=== PATIENT | female | born 1990 | race African-American/Black ===

== ENCOUNTER 2016-06-22 23:30 | Emergency (ER) | payer SELFPAY ==
[~2016-06-22] VITALS: Ht 180.3 cm; Wt 67.1 kg
[2016-06-23 00:11] LABS: BASO % 1 % (0-3); EOS % 1 % (0-3); HEMATOCRIT 40.8 % (36.0-47.0); HEMOGLOBIN 13.6 g/dL (12.0-15.5); LYMPH # 1.2 x10^3/uL (1.0-4.8); LYMPH % 27 % (24-48); MEAN CORPUSCULAR HEMOGLOBIN 30 pg (25-35); MEAN CORPUSCULAR HGB CONC 33 g/dL (31-37); MEAN CORPUSCULAR VOLUME 89 fL (79-100); MONO % 11 % (0-9); NEUT % 61 % (31-73); PLATELET COUNT 221 x10^3/uL (140-400); RED BLOOD COUNT 4.57 x10^6/uL (3.50-5.40); RED CELL DISTRIBUTION WIDTH 11.9 % (11.5-14.5); WHITE BLOOD COUNT 4.4 x10^3/uL (4.0-11.0)
[2016-06-23 00:11] LABS: NEG OBC UR NEG; POS OBC UR POS
[2016-06-23 00:14] LABS: BILIRUBIN,URINE SMALL (NEG); GLUCOSE,URINE NEGATIVE (NEG); NITRITE,URINE NEGATIVE (NEG); PH,URINE 5.5; PROTEIN,URINE NEGATIVE (NEG-TRACE); UROBILINOGEN,URINE 0.2 mg/dL (0.2 mg/dL)
[2016-06-23 00:19] LABS: BACTERIA,URINE FEW /HPF (0-FEW); RBC,URINE OCC /HPF (0-2); SQUAMOUS EPITHELIAL CELL,UR MANY /LPF; WBC,URINE OCC /HPF (0-4)
[2016-06-23 00:24] LABS: CALCIUM 8.7 mg/dL (8.5-10.1); CREATININE 0.7 mg/dL (0.6-1.0); GFR 124.4; POTASSIUM 3.5 mmol/L (3.5-5.1)
[2016-06-23 00:27] LABS: ALBUMIN 3.9 g/dL (3.4-5.0); TOTAL BILIRUBIN 0.5 mg/dL (0.2-1.0); TOTAL PROTEIN 7.9 g/dL (6.4-8.2)
[2016-06-23] MEDS ORDERED: ONDA4TAB10 SL (00:49)
[2016-06-23] MEDS ORDERED: HYDR-2666 PO (00:49)
--- NOTE | 2016-06-23 00:49 | PHYS DOC ---
Past Medical History Past Medical History: No Pertinent History Past Surgical History: No Surgical History Alcohol Use: None Drug Use: None Adult General Chief Complaint Chief Complaint: ABDOMINAL PAIN HPI HPI 25-year-old female presenting to the emergency department with abdominal pain describes as cramping sensation. She is also had diarrhea that is watery nonbloody and intermittent. She reports 6 episodes today. She has occasional nausea without vomiting. She tried to take Pepto-Bismol with no relief. She denies chest pain shortness of breath fevers or chills. Review of systems is negative for vomiting, chest pain. Positive for diarrhea abdominal pain.All other review of systems is negative unless otherwise noted in history of present illness. Review of Systems Review of Systems See above. Allergies Allergies Allergies Coded Allergies Type Severity Reaction Last Updated Verified No Known Drug Allergies 06/22/16 No Physical Exam Physical Exam Constitutional: Well developed, well nourished, no acute distress, non-toxic appearance. HENT: Normocephalic, atraumatic, bilateral external ears normal, oropharynx moist, no oral exudates, nose normal. [] Eyes: PERRLA, EOMI, conjunctiva normal, no discharge. Neck: Normal range of motion, no tenderness, supple, no stridor. [] Cardiovascular:Heart rate regular rhythm, no murmur Lungs & Thorax: Bilateral breath sounds clear to auscultation [] Abdomen: Soft nontender abdomen without rebound tenderness or guarding present. Negative McBurneys point. Negative Ferrara sign. No ecchymosis present. Skin: Warm, dry, no erythema, no rash. Back: No tenderness, no CVA tenderness. [] Extremities: No tenderness, no cyanosis, no clubbing, ROM intact, no edema. [] Neurologic: Alert and oriented X 3, normal motor function, normal sensory function, no focal deficits noted. Psychologic: Affect normal, judgement normal, mood normal. Current Patient Data Vital Signs Vital Signs Date Time Temp Pulse Resp B/P Pulse Ox O2 Delivery O2 Flow Rate FiO2 06/23/16 00:59 69 16 107/55 99 06/22/16 23:59 99.1 Room Air 99.1 Lab Values Laboratory Tests Test 06/22/16 23:45 06/22/16 23:50 Urine Collection Type Unknown Urine Color Yellow Urine Clarity Clear Urine pH 5.5 Urine Specific [place] >=1.030 Urine Protein Negativemg/dL (NEG-TRACE) Urine Glucose (UA) Negativemg/dL (NEG) Urine Ketones (Stick) 40mg/dL (NEG) Urine Blood Negative (NEG) Urine Nitrite Negative (NEG) Urine Bilirubin Small (NEG) Urine Urobilinogen Dipstick 0.2mg/dL (0.2 mg/dL) Urine Leukocyte Esterase Negative (NEG) Urine RBC Occ/HPF (0-2) Urine WBC Occ/HPF (0-4) Urine Squamous Epithelial Cells Many/LPF Urine Bacteria Few/HPF (0-FEW) Urine Mucus Marked/LPF Urine Test Negative (NEG) White Blood Count 4.4x10^3/uL (4.0-11.0) Red Blood Count 4.57x10^6/uL (3.50-5.40) Hemoglobin 13.6g/dL (12.0-15.5) Hematocrit 40.8% (36.0-47.0) Mean Corpuscular Volume 89fL (79-100) Mean Corpuscular Hemoglobin 30pg (25-35) Mean Corpuscular Hemoglobin Concent 33g/dL (31-37) Red Cell Distribution Width 11.9% (11.5-14.5) Platelet Count 221x10^3/uL (140-400) Neutrophils (%) (Auto) 61% (31-73) Lymphocytes (%) (Auto) 27% (24-48) Monocytes (%) (Auto) 11% (0-9) H Eosinophils (%) (Auto) 1% (0-3) Basophils (%) (Auto) 1% (0-3) Neutrophils # (Auto) 2.7x10^3uL (1.8-7.7) Lymphocytes # (Auto) 1.2x10^3/uL (1.0-4.8) Monocytes # (Auto) 0.5x10^3/uL (0.0-1.1) Eosinophils # (Auto) 0.0x10^3/uL (0.0-0.7) Basophils # (Auto) 0.0x10^3/uL (0.0-0.2) Sodium Level 138mmol/L (136-145) Potassium Level 3.5mmol/L (3.5-5.1) Chloride Level 105mmol/L (98-107) Carbon Dioxide Level 23mmol/L (21-32) Anion Gap 10 (6-14) Blood Urea Nitrogen 10mg/dL (7-20) Creatinine 0.7mg/dL (0.6-1.0) Estimated GFR (Cockcroft-Gault) 124.4 BUN/Creatinine Ratio 14 (6-20) Glucose Level 86mg/dL (70-99) Calcium Level 8.7mg/dL (8.5-10.1) Total Bilirubin 0.5mg/dL (0.2-1.0) Aspartate Amino Transferase (AST) 19U/L (15-37) Alanine Aminotransferase (ALT) 29U/L (14-59) Alkaline Phosphatase 71U/L (46-116) Total Protein 7.9g/dL (6.4-8.2) Albumin 3.9g/dL (3.4-5.0) Albumin/Globulin Ratio 1.0 (1.0-1.7) Lipase 105U/L (73-393) Laboratory Tests 06/22/16 23:50 Laboratory Tests 06/22/16 23:50 EKG EKG [] Radiology/Procedures Radiology/Procedures [] Course & Med Decision Making Course & Med Decision Making Pertinent Labs and Imaging studies reviewed. (See chart for details) [] 25-year-old female with abdominal pain and diarrhea presenting to the emergency department today. Vital signs showed normal heart rate. Afebrile. Otherwise unremarkable. Physical exam showed a nontender abdomen. Blood work obtained which was unremarkable. Urinalysis negative for . Not suggestive of infection. Mildly dehydrated. The patient was subsequent discharged home to follow up with PCP over the next 2-3 days. She is provided nausea and pain medication in the interim for symptomatic relief. Dragon Disclaimer Dragon Disclaimer This electronic medical record was generated, in whole or in part, using a voice recognition dictation system. Departure Departure Impression: Primary Impression: Abdominal pain Disposition: 01 HOME, SELF-CARE Condition: STABLE Referrals: NO PCP (PCP) STANLEY HOOVER MD Patient Instructions: Abdominal Pain, Women Additional Instructions: Thank you for allowing us to participate in your care today. Followup with your primary care physician in 3 days if your symptoms do not improve. If you do not have a primary care provider you can ask for a list of our primary care providers. Return to the emergency department you have any new or concerning findings. This should be evaluated by the primary care physician and any necessary consulting services for continued management within a few days after discharge. Return to emergency room if you have any new or concerning symptoms including but not limited to fever, chills, nausea, vomiting, intractable pain, any new rashes, chest pain, shortness of air, uncontrolled bleeding, difficulty breathing, and/or vision loss. You may have been prescribed medication that can change in your level of thinking and ability to operate machinery. These medications include hydrocodone and Ativan. Also, Benadryl has been known to do this as well. Be sure to check with your pharmacist and ask if the medications you've prescribed can affect your level of consciousness. I recommend not operating heavy machinery or driving while on medication such as these. Scripts Hydrocodone Bit/Acetaminophen (Hydrocodone-Apap 5-325 )1 Each Tablet1 Tab PO PRN Q6HRS PRN PAIN #8 TAB Be careful as this medication may cause you to be drowsy or tired. Do not drive on this medication. Prov:PHYLICIA MOSELEY MD 06/23/16 Ondansetron (Zofran Odt)4 Mg Tab.rapdis1 Tab SL PRN Q8HRS PRN NAUSEA #6 TAB Prov:PHYLICIA MOSELEY MD 06/23/16 PHYLICIA MOSELEY MD Jun 23, 2016 00:49
[2016-06-23 00:59] VITALS: BP 107/55
== END 2016-06-23 01:01 | disposition home or self-care (01) ==
LOC: ER 23:30
DX: R10.9 Unspecified abdominal pain (principal); R19.7 Diarrhea, unspecified; R11.0 Nausea
CPT/HCPCS: 36415; 80053; 81001; 81025; 83690; 85027; 99284

== ENCOUNTER 2017-01-09 18:50 | Emergency (ER) | payer SELFPAY ==
[~2017-01-09] VITALS: Ht 154.9 cm; Wt 68.9 kg
[~2017-01-09 18:50] MED LIST: HYDR-2758 PO; ONDA4TAB10 SL
[2017-01-09 19:25] VITALS: BP 112/59
--- NOTE | 2017-01-09 19:59 | PHYS DOC ---
Past Medical History Past Medical History: Asthma, Bronchitis Past Surgical History: No Surgical History Alcohol Use: None Drug Use: None Adult General Chief Complaint Chief Complaint: PAIN ON URINATION [facility] HPI Patient is a 26 year old female who presents with dysuria and hematuria since yesterday. Patient denies any concerns for STDs. Denies any fever nausea vomiting. She states she is trying to get . Review of Systems Review of Systems Constitutional: Denies fever or chills [] Eyes: Denies change in visual acuity, redness, or eye pain [] HENT: Denies nasal congestion or sore throat [] Respiratory: Denies cough or shortness of breath [] Cardiovascular: No additional information not addressed in HPI [] GI: Denies abdominal pain, nausea, vomiting, bloody stools or diarrhea [] : Dysuria for 1 day Musculoskeletal: Denies back pain or joint pain [] Integument: Denies rash or skin lesions [] Neurologic: Denies headache, focal weakness or sensory changes [] Endocrine: Denies polyuria or polydipsia [] Allergies Allergies Allergies Coded Allergies Type Severity Reaction Last Updated Verified No Known Drug Allergies 06/22/16 No Physical Exam Physical Exam Constitutional: Well developed, well nourished, no acute distress, non-toxic appearance. [] HENT: Normocephalic, atraumatic, bilateral external ears normal, oropharynx moist, no oral exudates, nose normal. [] Eyes: PERRLA, EOMI, conjunctiva normal, no discharge. [] Neck: Normal range of motion, no tenderness, supple, no stridor. [] Cardiovascular:Heart rate regular rhythm, no murmur [] Lungs & Thorax: Bilateral breath sounds clear to auscultation [] Abdomen: Bowel sounds normal, soft, no tenderness, no masses, no pulsatile masses. [] Skin: Warm, dry, no erythema, no rash. [] Back: No tenderness, no CVA tenderness. [] Extremities: No tenderness, no cyanosis, no clubbing, ROM intact, no edema. [] Neurologic: Alert and oriented X 3, normal motor function, normal sensory function, no focal deficits noted. [] Psychologic: Affect normal, judgement normal, mood normal. [] Current Patient Data Vital Signs Vital Signs Date Time Temp Pulse Resp B/P (MAP) Pulse Ox O2 Delivery O2 Flow Rate FiO2 01/09/17 19:25 98.1 71 20 98 Room Air 98.1 Lab Values Laboratory Tests Test 01/09/17 19:02 01/09/17 19:50 POC Urine HCG, Qualitative Hcg negative (Negative) Urine Collection Type Unknown Urine Color Yellow Urine Clarity Cloudy Urine pH 5.5 Urine Specific [place] >=1.030 Urine Protein Negative mg/dL (NEG-TRACE) Urine Glucose (UA) Negative mg/dL (NEG) Urine Ketones (Stick) Negative mg/dL (NEG) Urine Blood Moderate (NEG) Urine Nitrite Positive (NEG) Urine Bilirubin Negative (NEG) Urine Urobilinogen Dipstick 0.2 mg/dL (0.2 mg/dL) Urine Leukocyte Esterase Small (NEG) Urine RBC 0 /HPF (0-2) Urine WBC 20-40 /HPF (0-4) Urine Squamous Epithelial Cells Many /LPF Urine Bacteria Many /HPF (0-FEW) EKG EKG [] Radiology/Procedures Radiology/Procedures [] Course & Med Decision Making Course & Med Decision Making Pertinent Labs and Imaging studies reviewed. (See chart for details) Patient is in the ED with dysuria and hematuria for one day, patient also states she is trying to get . Negative urine hCG, urine positive for UTI discharged with cephalexin and Pyridium. Tylenol /Motrin for pain. Follow- up with PCP in 1-2 weeks. Dragon Disclaimer Dragon Disclaimer This electronic medical record was generated, in whole or in part, using a voice recognition dictation system. Departure Departure Impression: Primary Impression: Urinary tract infection Disposition: 01 HOME, SELF-CARE Condition: STABLE Referrals: NO PCP (PCP) Follow-up with your doctor in 1-2 weeks Patient Instructions: Urinary Tract Infection Additional Instructions: You were seen for urinary tract infection. Complete your antibiotics. Take Tylenol/ Motrin for pain or the prescribed Pyridium. Follow-up with your doctor in 1-2 weeks. Push fluids. Come back to the ED if symptoms worsen Scripts Cephalexin (CEPHALEXIN) 500 Mg Tablet 1 TAB PO BID, #14 TAB Prov: MUTUNGA,PADDY COMMUNICATIONS EDITOR 01/09/17 Phenazopyridine Hcl (PYRIDIUM) 100 Mg Tablet 100 MG PO TID, #9 TAB Prov: MUTUNGAPADDY COMMUNICATIONS EDITOR 01/09/17 Problem Qualifiers Primary Impression: Urinary tract infection Urinary tract infection type: acute cystitis Hematuria presence: with hematuria Qualified Codes: N30.01 - Acute cystitis with hematuria PADDY CAMPUZANO APRN Jan 09, 2017 19:59
[2017-01-09 20:01] LABS: BILIRUBIN,URINE NEGATIVE (NEG); GLUCOSE,URINE NEGATIVE (NEG); NITRITE,URINE POSITIVE (NEG); PH,URINE 5.5; PROTEIN,URINE NEGATIVE (NEG-TRACE); UROBILINOGEN,URINE 0.2 mg/dL (0.2 mg/dL)
[2017-01-09 20:23] LABS: BACTERIA,URINE MANY /HPF (0-FEW); RBC,URINE 0 /HPF (0-2); WBC,URINE 20-40 /HPF (0-4)
[2017-01-09 20:24] LABS: SQUAMOUS EPITHELIAL CELL,UR MANY /LPF
[2017-01-09] MEDS ORDERED: CEPH500T PO (20:40)
[2017-01-09] MEDS ORDERED: PHEN100T82 PO (20:40)
== END 2017-01-09 21:05 | disposition home or self-care (01) ==
LOC: ER 18:50
DX: N30.01 Acute cystitis with hematuria (principal); J45.909 Unspecified asthma, uncomplicated
CPT/HCPCS: 81001; 81025; 99283

== ENCOUNTER 2017-01-18 11:41 | Emergency (ER) | payer OTHER ==
[~2017-01-18] VITALS: Ht 154.9 cm; Wt 68.0 kg
[~2017-01-18 11:41] MED LIST changes: +CEPH500T PO; +PHEN100T82 PO
[2017-01-18 13:16] VITALS: BP 113/62
[2017-01-18 13:56] LABS: BILIRUBIN,URINE NEGATIVE (NEG); GLUCOSE,URINE NEGATIVE (NEG); NITRITE,URINE NEGATIVE (NEG); PH,URINE 5.5; PROTEIN,URINE NEGATIVE (NEG-TRACE); UROBILINOGEN,URINE 0.2 mg/dL (0.2 mg/dL)
[2017-01-18 14:02] LABS: BACTERIA,URINE MOD /HPF (0-FEW); RBC,URINE 0 /HPF (0-2); SQUAMOUS EPITHELIAL CELL,UR MOD /LPF; WBC,URINE OCC /HPF (0-4)
[2017-01-18] MEDS ORDERED: NYST15CR2 TP (14:27)
--- NOTE | 2017-01-18 14:28 | PHYS DOC ---
Past Medical History Past Medical History: Asthma, Bronchitis Past Surgical History: No Surgical History Alcohol Use: None Drug Use: None Adult General Chief Complaint Chief Complaint: VAGINAL PROBLEM HPI HPI Patient is a 26 year old female who presents with vaginal rash, irritation, redness and discharged 3 days ago after completing cephalexin for UTI. Patient denies any concerns for STDs. Review of Systems Review of Systems Constitutional: Denies fever or chills [] Eyes: Denies change in visual acuity, redness, or eye pain [] HENT: Denies nasal congestion or sore throat [] Respiratory: Denies cough or shortness of breath [] Cardiovascular: No additional information not addressed in HPI [] GI: vaginal rash, irritation, redness and discharged : Denies dysuria or hematuria [] Musculoskeletal: Denies back pain or joint pain [] Integument: Denies rash or skin lesions [] Neurologic: Denies headache, focal weakness or sensory changes [] Endocrine: Denies polyuria or polydipsia [] Current Medications Current Medications Current Medications Medications (Trade) Dose Ordered Sig/Ash Start Time Stop Time Status Last Admin Dose Admin Fluconazole (Diflucan) 150 mg 1X ONCE 01/18/17 14:30 01/18/17 14:31 UNV Allergies Allergies Allergies Coded Allergies Type Severity Reaction Last Updated Verified No Known Drug Allergies 06/22/16 No Physical Exam Physical Exam Constitutional: Well developed, well nourished, no acute distress, non-toxic appearance. [] HENT: Normocephalic, atraumatic, bilateral external ears normal, oropharynx moist, no oral exudates, nose normal. [] Eyes: PERRLA, EOMI, conjunctiva normal, no discharge. [] Neck: Normal range of motion, no tenderness, supple, no stridor. [] Cardiovascular:Heart rate regular rhythm, no murmur [] Lungs & Thorax: Bilateral breath sounds clear to auscultation [] Abdomen: Bowel sounds normal, soft, no tenderness, no masses, no pulsatile masses. [] Pelvic exam External pelvic appears irritated. No obvious rashes noted. Diffuse Swelling noted on the external labia. cervix=closed no CMT discharge=trace amount of white thick discharge adnexa=no tenderness Skin: Warm, dry, no erythema, no rash. [] Back: No tenderness, no CVA tenderness. [] Extremities: No tenderness, no cyanosis, no clubbing, ROM intact, no edema. [] Neurologic: Alert and oriented X 3, normal motor function, normal sensory function, no focal deficits noted. [] Psychologic: Affect normal, judgement normal, mood normal. [] Current Patient Data Vital Signs Vital Signs Date Time Temp Pulse Resp B/P (MAP) Pulse Ox O2 Delivery O2 Flow Rate FiO2 01/18/17 13:16 98.7 72 16 99 Room Air 98.7 Lab Values Laboratory Tests Test 01/18/17 13:03 01/18/17 13:30 POC Urine HCG, Qualitative Hcg negative (Negative) Urine Collection Type Unknown Urine Color Yellow Urine Clarity Cloudy Urine pH 5.5 Urine Specific [place] 1.010 Urine Protein Negative mg/dL (NEG-TRACE) Urine Glucose (UA) Negative mg/dL (NEG) Urine Ketones (Stick) Negative mg/dL (NEG) Urine Blood Negative (NEG) Urine Nitrite Negative (NEG) Urine Bilirubin Negative (NEG) Urine Urobilinogen Dipstick 0.2 mg/dL (0.2 mg/dL) Urine Leukocyte Esterase Trace (NEG) Urine RBC 0 /HPF (0-2) Urine WBC Occ /HPF (0-4) Urine Squamous Epithelial Cells Mod /LPF Urine Bacteria Mod /HPF (0-FEW) Urine Mucus Marked /LPF Microbiology 01/18/17 Wet Prep - Final, Complete EKG EKG [] Radiology/Procedures Radiology/Procedures [] Course & Med Decision Making Course & Med Decision Making Pertinent Labs and Imaging studies reviewed. (See chart for details) Patient is in the ED with vaginal discharge with swelling and irritation that began 3 days ago after completing cephalexin. On exam vaginal discharge that is suspicious for yeast infection. Urine analysis with no acute findings, wet prep was negative for any acute findings. I went ahead and gave this patient fluconazole in the ED. I also discharged her with nystatin/triamcinolone cream. Informed her she can take Benadryl as well. Follow-up with her EXECUTIVE ADMINISTRATOR in one week if symptoms continue. Dragon Disclaimer Dragon Disclaimer This electronic medical record was generated, in whole or in part, using a voice recognition dictation system. Departure Departure Impression: Primary Impression: Vaginal irritation Disposition: 01 HOME, SELF-CARE Condition: STABLE Referrals: NO PCP (PCP) DARA PAPPAS MD follow up in one week Patient Instructions: Candidal Vulvovaginitis, [id number] Additional Instructions: You were seen with vaginal irritation highly suspicious of a yeast infection. You were fluconazole one time treatment in the ED for yeast infection. We highly recommend you follow-up with your own doctor or the provided EXECUTIVE ADMINISTRATOR in 1- 2 weeks. Use the provided cream as ordered. Scripts Nystatin/Triamcin (NYSTATIN-TRIAMCINOLONE CREAM) 15 Gm Cream..g. 1 CANDIE TP BID, #15 GM 1 Refill Prov: PADDY CAMPUZANO APRN 01/18/17 PADDY CAMPUZANO APRN Jan 18, 2017 14:28
[2017-01-18] MEDS ORDERED: FLUCONAZOLE 100 MG TABLET. PO ONE (14:30)
== END 2017-01-18 14:37 | disposition home or self-care (01) ==
LOC: ER 11:41
DX: N89.8 Other specified noninflammatory disorders of vagina (principal); J45.909 Unspecified asthma, uncomplicated
CPT/HCPCS: 81001; 81025; 87491; 87591; 99284; Q0111

== ENCOUNTER 2017-03-04 09:55 | Emergency (ER) | payer OTHER ==
[~2017-03-04] VITALS: Ht 154.9 cm; Wt 68.0 kg
[~2017-03-04 09:55] MED LIST changes: +NYST15CR2 TP
--- NOTE | 2017-03-04 10:42 | PHYS DOC ---
Past Medical History Past Medical History: Asthma, Bronchitis Past Surgical History: No Surgical History Alcohol Use: None Drug Use: None Adult General Chief Complaint Chief Complaint: ABDOMINAL PAIN [facility] HPI Patient is a 26 year old female presents to the emergency department with a 1 week history of lower abdominal pain. Patient states the pain is a cramping type pain. She states her LNMP was January 22. She denies urinary frequency, urgency or pain with urination. Denies vomiting does state she has been nauseated, Denies diarrhea, states she had a normal BM today. She has taken a test at home with a negative result. Patient is requesting blood to be drawn for test. Patient denies vaginal discharge. Patient states her cramping is a 8/10 however has not taken any medications for the pain. Review of Systems Review of Systems Constitutional: Denies fever or chills [] Eyes: Denies change in visual acuity, redness, or eye pain [] HENT: Denies nasal congestion or sore throat [] Respiratory: Denies cough or shortness of breath [] Cardiovascular: No additional information not addressed in HPI [] GI: lower abdominal cramping, nausea, denies vomiting, bloody stools or diarrhea [] : Denies dysuria or hematuria [] Musculoskeletal: Denies back pain or joint pain [] Integument: Denies rash or skin lesions [] Neurologic: Denies headache, focal weakness or sensory changes [] Endocrine: Denies polyuria or polydipsia [] Current Medications Current Medications Current Medications Medications (Trade) Dose Ordered Sig/[facility] Start Time Stop Time Status Last Admin Dose Admin Acetaminophen (Tylenol) 650 mg 1X ONCE 03/04/17 10:45 03/04/17 10:46 DC 03/04/17 10:42 650 MG Allergies Allergies Allergies Coded Allergies Type Severity Reaction Last Updated Verified No Known Drug Allergies 06/22/16 No Physical Exam Physical Exam Constitutional: Well developed, well nourished, no acute distress, non-toxic appearance. [] HENT: Normocephalic, atraumatic, bilateral external ears normal, oropharynx moist, no oral exudates, nose normal. [] Eyes: PERRLA, EOMI, conjunctiva normal, no discharge. [] Neck: Normal range of motion, no tenderness, supple, no stridor. [] Cardiovascular:Heart rate regular rhythm, no murmur [] Lungs & Thorax: Bilateral breath sounds clear to auscultation [] Abdomen: Bowel sounds hypoactive, soft, suprapubic tenderness, no masses, no pulsatile masses. No rebound tenderness, no guarding noted. Skin: Warm, dry, no erythema, no rash. [] Back: No tenderness, no CVA tenderness. [] Extremities: No tenderness, no cyanosis, no clubbing, ROM intact, no edema. [] Neurologic: Alert and oriented X 3, normal motor function, normal sensory function, no focal deficits noted. [] Psychologic: Affect normal, judgement normal, mood normal. [] Current Patient Data Vital Signs Vital Signs Date Time Temp Pulse Resp B/P (MAP) Pulse Ox O2 Delivery O2 Flow Rate FiO2 03/04/17 11:06 80 20 111/65 (80) 98 Room Air 03/04/17 10:12 98.7 98.7 Lab Values Laboratory Tests Test 03/04/17 10:07 03/04/17 10:35 03/04/17 11:00 POC Urine HCG, Qualitative Hcg negative (Negative) Urine Collection Type Unknown Urine Color Yellow Urine Clarity Clear Urine pH 5.5 Urine Specific [place] 1.025 Urine Protein Negative mg/dL (NEG-TRACE) Urine Glucose (UA) Negative mg/dL (NEG) Urine Ketones (Stick) Negative mg/dL (NEG) Urine Blood Large (NEG) Urine Nitrite Negative (NEG) Urine Bilirubin Negative (NEG) Urine Urobilinogen Dipstick 0.2 mg/dL (0.2 mg/dL) Urine Leukocyte Esterase Negative (NEG) Urine RBC Occ /HPF (0-2) Urine WBC Occ /HPF (0-4) Urine Squamous Epithelial Cells Mod /LPF Urine Bacteria 0 /HPF (0-FEW) Urine Mucus Mod /LPF Maternal Serum HCG Beta Subunit < 1 mIU/mL (0-5) EKG EKG [] Radiology/Procedures Radiology/Procedures [] Course & Med Decision Making Course & Med Decision Making Pertinent Labs and Imaging studies reviewed. (See chart for details) Patient's urine was negative for urinary tract infection, negative for , beta Quant was completed which was less than 1. Patient was provided with Tylenol for abdominal cramping and discomfort. A shunt urine was positive for large amount of blood however patient states that her abdominal pain and discomfort is completely gone. Patient will be discharged home with recommendations for Tylenol or ibuprofen for pain and discomfort. She was also recommended to follow-up with the primary care physician if she continues to have abdominal pain and discomfort. Patient agrees with discharge instructions, treatment regimens and follow-up recommendations. All questions and concerns have been answered at patient's bedside. Patient denies any vaginal discharge or any concerns for sexually transmitted infections, patient did not feel vaginal exam was necessary. [] Dragon Disclaimer Dragon Disclaimer This electronic medical record was generated, in whole or in part, using a voice recognition dictation system. Departure Departure Impression: Primary Impression: Bilateral lower abdominal cramping Disposition: HOME, SELF-CARE Condition: STABLE Referrals: NO PCP (PCP) Patient Instructions: Abdominal Pain (Nonspecific) Additional Instructions: Your test were negative here in the emergency department. Your urine was negative for urinary tract infection. However did have large amount of blood. Tylenol or ibuprofen for your abdominal cramping and discomfort. Follow-up with a primary care physician in the next week. Return back to emergency prior signs symptoms of become worse. JOSIE RICHARDS ASPHALT RAKER Mar 04, 2017 10:42
[2017-03-04] MEDS ORDERED: ACETAMINOPHEN 325 MG TABLET. PO ONE (10:45)
[2017-03-04 10:51] LABS: BILIRUBIN,URINE NEGATIVE (NEG); GLUCOSE,URINE NEGATIVE (NEG); NITRITE,URINE NEGATIVE (NEG); PH,URINE 5.5; PROTEIN,URINE NEGATIVE (NEG-TRACE); UROBILINOGEN,URINE 0.2 mg/dL (0.2 mg/dL)
[2017-03-04 11:06] VITALS: BP 111/65
[2017-03-04 11:27] LABS: BACTERIA,URINE 0 /HPF (0-FEW); RBC,URINE OCC /HPF (0-2); SQUAMOUS EPITHELIAL CELL,UR MOD /LPF; WBC,URINE OCC /HPF (0-4)
== END 2017-03-04 12:26 | disposition home or self-care (01) ==
LOC: ER 09:55
DX: R10.32 Left lower quadrant pain (principal); R10.31 Right lower quadrant pain; R11.0 Nausea; J45.909 Unspecified asthma, uncomplicated
CPT/HCPCS: 36415; 81001; 81025; 84702; 99284

== ENCOUNTER 2017-06-04 09:29 | Emergency (ER) | payer SELFPAY, OTHER ==
[2017-06-04 10:01] LABS: URINE HCG POC HCG NEGATIVE (Negative)
[2017-06-04 10:30] LABS: BILIRUBIN,URINE NEGATIVE (NEG); CLARITY,URINE CLEAR; COLOR,URINE YELLOW; GLUCOSE,URINE NEGATIVE (NEG); NITRITE,URINE NEGATIVE (NEG); PH,URINE 5.5; PROTEIN,URINE NEGATIVE (NEG-TRACE); UROBILINOGEN,URINE 0.2 mg/dL (0.2 mg/dL)
[2017-06-04 10:46] LABS: BACTERIA,URINE FEW /HPF (0-FEW); RBC,URINE RARE /HPF (0-2); SQUAMOUS EPITHELIAL CELL,UR MANY /LPF; WBC,URINE RARE /HPF (0-4)
== END 2017-06-04 12:18 | disposition home or self-care (01) ==
LOC: ER 09:29
DX: Z71.1 Person with feared health complaint in whom no diagnosis is made (principal); J45.909 Unspecified asthma, uncomplicated
CPT/HCPCS: 76830; 76856; 81001; 81025; 99285-25

== ENCOUNTER 2018-12-29 | Emergency (ER) | payer SELFPAY ==
[~2018-12-29] VITALS: Ht 152.4 cm; Wt 68.0 kg
[2018-12-29] VITALS: BP 132/95
[~2018-12-29] MED LIST changes: -HYDR-2758 PO; +HYDR-2761 PO
[2018-12-29] MEDS ORDERED: LORA0.5T96 PO (00:14)
--- NOTE | 2018-12-29 00:14 | PHYS DOC ---
Past Medical History Past Medical History: Asthma, Bronchitis Past Surgical History: No Surgical History Alcohol Use: None Drug Use: None Adult General Chief Complaint Chief Complaint: ANXIETY/PANIC ATTACK HPI HPI Ms. Maguire is a 28yo AAF w/ PMH significant for anxiety and panic attacks presents with shortness of breath and palpitations that began tonight as she was laying in bed. She reports DAVIS. Denies CP. States she has experienced similar symptoms multiple times before but is typically able to get her anxiety under control but feared she might be suffering from a heart attack, prompting her to call EMS. Review of Systems Review of Systems Constitutional: Denies fever or chills Eyes: Denies redness or eye pain HENT: Denies nasal congestion or sore throat Respiratory: Reports shortness of breath. Denies cough. Cardiovascular: Reports palpitations. Denies chest pain. GI: Denies abdominal pain, nausea, or vomiting : Denies dysuria or hematuria Musculoskeletal: Denies back pain or joint pain Integument: Denies rash or skin lesions Neurologic: Reports DAVIS. Denies focal weakness or sensory changes Complete systems were reviewed and found to be within normal limits, except as documented in this note. Allergies Allergies Allergies Coded Allergies Type Severity Reaction Last Updated Verified No Known Drug Allergies 06/22/16 No Physical Exam Physical Exam Constitutional: Well developed, well nourished, no acute distress, non-toxic appearance HENT: Normocephalic, atraumatic, oropharynx moist Eyes: PERRL, EOMI, conjunctiva normal, no discharge Neck: Normal range of motion, no tenderness, supple, no cervical or supraclavicular LAD Cardiovascular: Heart rate normal, regular rhythm Lungs & Thorax: Bilateral breath sounds clear to auscultation, no wheezing Abdomen: Soft, no tenderness Skin: Warm, dry, no erythema, no rash Extremities: No tenderness, ROM intact, no edema Neurologic: Alert and oriented X 3, normal motor function, normal sensory function, no focal deficits noted Psychologic: Affect normal, judgement normal, mood normal Current Patient Data Vital Signs Vital Signs Date Time Temp Pulse Resp B/P (MAP) Pulse Ox O2 Delivery O2 Flow Rate FiO2 12/29/18 00:00 98.2 70 16 132/95 (107) 98 Room Air 98.2 EKG EKG EKG obtained @ 00:15 and read @ 00:18. NSR w/o ST-elevation changes. 73 BPM.[] Radiology/Procedures Radiology/Procedures [] Course & Med Decision Making Course & Med Decision Making Patient presented w/ shortness of breath and palpitations secondary to anxiety/panic attack. EKG NSR. Patient stable for discharge with outpatient follow-up with PCP. Discussed findings and plan with patient and family, who acknowledge understanding and agreement. [] Dragon Disclaimer Dragon Disclaimer This electronic medical record was generated, in whole or in part, using a voice recognition dictation system. Departure Departure Impression: Primary Impression: Anxiety Disposition: 01 HOME, SELF-CARE Condition: IMPROVED Referrals: NO PCP (PCP) Patient Instructions: Anxiety and Panic Attacks, [id number] Scripts Lorazepam (ATIVAN) 0.5 Mg Tablet 0.5 MG PO TID PRN for ANXIETY / AGITATION, #6 TAB Prov: STANLEY MCDERMOTT DO 12/29/18 STANLEY MCDERMOTT DO Dec 29, 2018 00:14
--- NOTE | 2018-12-29 06:35 | EKG ---
[facility] [address] [place] [address] Test Date: 2018-12-29 Test Time: 00:15:13 Pat Name: GUERLINE LAINEZ Department: Room: Gender: F [employer]: : 1990 Requested By: STANLEY MCDERMOTT Order Number: [id number] Reading MD: Measurements Intervals [place] Rate: 73 P: 46 CT: 132 QRS: 26 QRSD: 88 T: 28 QT: 368 QTc: 409 Interpretive Statements SINUS RHYTHM OTHERWISE NORMAL ECG RI6.01 Unconfirmed report No previous ECG available for comparison
== END 2018-12-29 00:23 | disposition home or self-care (01) ==
LOC: ER
DX: F41.9 Anxiety disorder, unspecified (principal); R00.2 Palpitations; R06.02 Shortness of breath; R51 Headache; J45.909 Unspecified asthma, uncomplicated
CPT/HCPCS: 93005; 99284

== ENCOUNTER 2021-02-09 18:11 | Emergency (ER) | payer OTHER ==
[~2021-02-09] VITALS: Ht 152.4 cm; Wt 79.5 kg
[~2021-02-09 18:11] MED LIST changes: +LORA0.5T96 PO
[2021-02-09 20:19] VITALS: BP 121/60
[2021-02-09 20:34] LABS: BILIRUBIN,URINE NEGATIVE (NEG); CLARITY,URINE CLEAR; COLOR,URINE YELLOW; NITRITE,URINE NEGATIVE (NEG); PH,URINE 6.5 (<5.0-8.0); PROTEIN,URINE NEGATIVE (NEG-TRACE); UROBILINOGEN,URINE 0.2 mg/dL (0.2 mg/dL)
[2021-02-09 20:43] LABS: BACTERIA,URINE MODERATE /HPF (0-FEW)
--- NOTE | 2021-02-09 20:55 | PHYS DOC ---
Past Medical History Past Medical History: Asthma, Bronchitis Past Surgical History: No Surgical History Smoking Status: Never Smoker Alcohol Use: None Drug Use: None Social History Narrative: CBD General Adult EDM: Chief Complaint: DYSPNEA/RESPIRATORY DISTRESS HPI: HPI: Patient is a 30 year old female with history of bronchitis, asthma, who presents the ED today complaining of pain to her chest on inspiration, symptoms for 2 days. Denies any fever coughing or congestion. Patient is in the ED with a young son who is actively coughing. Review of Systems: Review of Systems: Constitutional: Denies fever or chills. [] Eyes: Denies change in visual acuity. [] HENT: Denies nasal congestion or sore throat. [] Respiratory: Reports pain to the chest on inspiration. Denies cough or shortness of breath. [] Cardiovascular: Denies chest pain or edema. [] GI: Denies abdominal pain, nausea, vomiting, bloody stools or diarrhea. [] : Denies dysuria. [] Musculoskeletal: Denies back pain or joint pain. [] Integument: Denies rash. [] Neurologic: Denies headache, focal weakness or sensory changes. [] Endocrine: Denies polyuria or polydipsia. [] Lymphatic: Denies swollen glands. [] Psychiatric: Denies depression or anxiety. [] Heart Score: C/O Chest Pain: N/A Risk Factors: Risk Factors: DM, Current or recent (<one month) smoker, HTN, HLP, family history of CAD, obesity. Risk Scores: Score 0 - 3: 2.5% MACE over next 6 weeks - Discharge Home Score 4 - 6: 20.3% MACE over next 6 weeks - Admit for Clinical Observation Score 7 - 10: 72.7% MACE over next 6 weeks - Early Invasive Strategies Allergies: Allergies: Allergies Coded Allergies Type Severity Reaction Last Updated Verified No Known Drug Allergies 06/22/16 No Physical Exam: PE: Constitutional: Well developed, well nourished, no acute distress, non-toxic appearance. [] HENT: Normocephalic, atraumatic, bilateral external ears normal, oropharynx moist, no oral exudates, nose normal. [] Eyes: PERRLA, EOMI, conjunctiva normal, no discharge. [] Neck: Normal range of motion, no tenderness, supple, no stridor. [] Cardiovascular:Heart rate regular rhythm, no murmur [] Lungs & Thorax: Bilateral breath sounds clear to auscultation [] Abdomen: Bowel sounds normal, soft, no tenderness, no masses, no pulsatile masses. [] Skin: Warm, dry, no erythema, no rash. [] Back: No tenderness, no CVA tenderness. [] Extremities: No tenderness, no cyanosis, no clubbing, ROM intact, no edema. [] Neurologic: Alert and oriented X 3, normal motor function, normal sensory function, no focal deficits noted. [] Psychologic: Affect normal, judgement normal, mood normal. [] Current Patient Data: Labs: Laboratory Tests Test 02/09/21 20:00 02/09/21 20:28 02/09/21 20:30 Urine Collection Type Void Urine Color Yellow Urine Clarity Clear Urine pH 6.5 (<5.0-8.0) Urine Specific [place] 1.025 (1.000-1.030) Urine Protein Negative mg/dL (NEG-TRACE) Urine Glucose (UA) Negative mg/dL (NEG) Urine Ketones (Stick) 15 mg/dL (NEG) Urine Blood Negative (NEG) Urine Nitrite Negative (NEG) Urine Bilirubin Negative (NEG) Urine Urobilinogen Dipstick 0.2 mg/dL (0.2 mg/dL) Urine Leukocyte Esterase Negative (NEG) Urine RBC 1-2 /HPF (0-2) Urine WBC 1-4 /HPF (0-4) Urine Squamous Epithelial Cells Many /LPF Urine Bacteria Moderate /HPF (0-FEW) Urine Mucus Marked /LPF POC Urine HCG, Qualitative Hcg negative (Negative) SARS-CoV-2 Antigen (Rapid) Negative (NEGATIVE) Vital Signs: Vital Signs Date Time Temp Pulse Resp B/P (MAP) Pulse Ox O2 Delivery O2 Flow Rate FiO2 02/09/21 20:19 99.1 82 18 121/60 (80) 100 Room Air 99.1 EKG: EKG: [] Radiology/Procedures: Radiology/Procedures: []PROCEDURE: CHEST AP ONLY EXAMINATION: Chest radiograph. VIEWS: Single view COMPARISON: None INDICATION:30 years, Female, cough. FINDINGS: Normal cardiomediastinal silhouette. No focal consolidation. No pleural effusion or pneumothorax. No acute osseous process. IMPRESSION: No acute cardiopulmonary process. Electronically signed by: Kala Chun MD (02/09/2021 9:02 PM) [facility] DICTATED and SIGNED BY: KALA CHUN MD DATE: 02/09/[id number] 0 Course & Med Decision Making: Course & Med Decision Making Pertinent Labs and Imaging studies reviewed. (See chart for details) This a 30-year-old female patient presenting to the ED today complaining of pain to her chest on inspiration only. Temperature in the ED is 99.1, O2 sats 100% on room air, blood pressure 121/60. Chest x-ray is negative for any acute findings UA negative for nitrates or leukocytes Negative rapid Covid test Patient was discharged to home. Instructed to quarantine himself until the PCR results are back. Supportive care measures recommended. Dragon Disclaimer: Dragon Disclaimer: This electronic medical record was generated, in whole or in part, using a voice recognition dictation system. Departure Departure Impression: Primary Impression: Pleurisy Additional Impression: Person under investigation for COVID-19 Disposition: HOME / SELF CARE / HOMELESS Condition: STABLE Referrals: NO PCP (PCP) follow up with your doctor in 1-2 weeks Patient Instructions: Pleurisy, [id number] Additional Instructions: You were evaluated in the emergency room, your chest x-ray was negative for pneumonia, your rapid Covid test is negative. Please quarantine yourself until you get results from us for Covid PCR test. Push fluids, maintain good antigen, take Tylenol or Motrin as needed for pain. APDDY CAMPUZANO APRN Feb 09, 2021 20:55
--- NOTE | 2021-02-09 21:04 | RAD ---
EXAMINATION: Chest radiograph. VIEWS: Single view COMPARISON: None INDICATION:30 years, Female, cough. FINDINGS: Normal cardiomediastinal silhouette. No focal consolidation. No pleural effusion or pneumothorax. No acute osseous process. IMPRESSION: No acute cardiopulmonary process. Electronically signed by: Kala Chun MD (02/09/2021 9:02 PM) [facility]
--- NOTE | 2021-02-11 16:39 | NUR ---
IP: Attempted to contact pt concerning covid results. No answer, left a voicemail to return the call. Addendum: 02/11/21 at 1651 by DERREK ENGLE RN Pt returned my call. Informed her of the negative covid test. Pt verbalized understanding.
== END 2021-02-09 23:13 | disposition home or self-care (01) ==
LOC: ER 18:11
DX: R09.1 Pleurisy (principal); Z20.822 Contact with and (suspected) exposure to COVID-19; J45.909 Unspecified asthma, uncomplicated
CPT/HCPCS: 71045; 81001; 81025; 87086; 87426; 99284; U0003; U0005